=== PATIENT | male | born 1950 | race Caucasian/White ===

== ENCOUNTER 2024-03-08 06:38 | Day surgery (SDC) | payer MEDICARE, SELFPAY ==
[2024-03-08] VITALS (9 sets, daily range): BP systolic 110–124; BP diastolic 60–73; BMI 22.6
[2024-03-08] MEDS: TYLENOL 1000 MG PO (08:19)
[2024-03-08] MEDS: NORMOSOL-R 1000 IV (08:19)
--- NOTE | 2024-03-08 10:59 | W.SUR.PREOP ---
Pre-Operative Surgical Note
-
I have examined this patient prior to the performance of the scheduled procedure.
The patient's condition is unchanged from the time of the current History and
Physical and the patient is able to undergo the scheduled procedure.
--- NOTE | 2024-03-08 10:59 | W.IMMPOSTOP ---
Surgical Immed Post Op Note
-
Primary Surgeon: Marcus Tejeda MD
Assisting Surgeon: None
Instructor Adjunct Pharmacy Technician: URIEL Taylor
Pre-op Diagnosis: Reducible right inguinal hernia
Post-op Diagnosis: Same
Procedure Performed: Open right inguinal hernia repair with mesh
Anesthesia Type: General
Specimen / Cultures: Right inguinal nerve
Estimated Blood Loss: 3 cc
Complications: None
Operative Findings: Small indirect inguinal hernia. No direct component or cord lipoma noted. Floor reinforced with 5 x 7 inch Bard uncoated polypropylene standard weight mesh in a standard Dino fashion.
--- NOTE | 2024-03-08 11:02 | OR.RPT ---
Operative Report
Operative Report
Patient Name: Mayur Cardoza Jr.
: 1950
Date of Operation: 03/08/2024
Preoperative Diagnosis: Reducible Inguinal hernia, right
Postoperative Diagnosis: Same
Procedure(s):
Open right inguinal Hernia Repair with mesh
Surgeon(s):
Dr. Tejeda
Jig And Fixture Maker(s):
Peg TREVINO
Anesthesia: General
Estimated Blood Loss: 3 cc
Urine Output: None
Drains/Lines/Implants: 3 x 6 inch Bard Flat Mesh cut to size
Specimens: None
Indication for surgery: The patient has a history of groin pain and some asymmetry noted on exam and was found to have a right Inguinal Hernia. Following review of therapeutic options they has elected to undergo an open repair
Operative Findings: Small indirect inguinal hernia. No direct component or cord lipoma noted. Floor reinforced with 5 x 7 inch Bard uncoated polypropylene standard weight mesh in a standard Dino fashion.
Details of the operation:
After induction of general anesthesia, the patient was clipped, prepped and draped in the supine position. A team timeout was performed confirming administration of DVT prophylaxis, IV antibiotics and SCDs. The ASIS and pubic tubercle were marked
and an incision was chosen along the course of a skin line. The skin was anesthestized with Lidocaine. An incision was made through the skin line and dissection carried down through subcutaneous tissue and Kenyetta's fascia. The superficial
epigastric vein was identified and ligated. A Small Christopher wound retractor was used to provide exposure. The external oblique fibers were then divided in the direction of travel. The ilioinguinal nerve was identified and sacrificed as it was in
close proximity to our planned mesh placement. Dissection was carried down to the floor, which revealed the following:
At the site of the indirect (internal) ring, there was a small hernia sac was identified, reduced off the cord structures and high ligation was performed. The hernia sac was densely adherent to the vas deferens which required a lot of manipulation
to free it from the hernia sac. Except defaults
A cord lipoma was not identified
The direct space, floor of the canal revealed no weakness.
The floor of the canal was then reconstructed by placing a 6x3 in BARD flat polypropylene mesh trimmed to size and secured it in place with interrupted 0-PDS sutures medially at the pubic tubercle, inferiorly along the inguinal ligament,
laterally/superiorly in the conjoint tendon. A slit was made in the mesh just wide enough to accommodate the cord this was also reapproximated with the PDS suture. Care was taken not to injure or entrap any nerves. The external oblique fibers were
then closed using a running 2-0 Vicryl suture. Kenyetta's fascia was then closed with interrupted 3-0 Vicryl suture. The skin was closed in layers with interrupted 3-0 vicryl deep dermals followed by a running subcuticular 4-0 Monocryl followed by
dermabond. The patient returned to the Recovery Room in stable condition. Sponge and instrument counts were correct. No specimens sent to Pathology.
I was the attending physician and performed the procedure with assistance from the PA student above. I was present for all portions of the case
Marcus Tejeda MD
== END 2024-03-08 12:35 | disposition home or self-care (01) ==
LOC: SDS 06:38
PROVIDERS: ATTENDING PHYSICIAN Surgery
DX: K40.90 Unilateral inguinal hernia, without obstruction or gangrene, not specified as recurrent (principal)
CPT/HCPCS: 49505; 88305; 93005; C1781

== ENCOUNTER → 2024-05-02 09:23 | Outpatient (REF) | payer MEDICARE, SELFPAY | LOC: RAD 09:23 | PROVIDERS: ATTENDING PHYSICIAN Surgery; FAMILY PHYSICIAN Family Medicine | DX: K40.90 Unilateral inguinal hernia, without obstruction or gangrene, not specified as recurrent (principal); G89.18 Other acute postprocedural pain | CPT/HCPCS: 72193; Q9967 ==

== ENCOUNTER → 2024-08-04 10:05 | Outpatient (REF) | payer MEDICARE, SELFPAY | LOC: WDC 10:05 | PROVIDERS: ATTENDING PHYSICIAN Family Medicine | DX: N62 Hypertrophy of breast (principal); N63.41 Unspecified lump in right breast, subareolar; N64.4 Mastodynia | CPT/HCPCS: 76642; 77062; 77066 ==

== ENCOUNTER → 2024-09-27 07:10 | Outpatient (REF) | payer MEDICARE, SELFPAY | LOC: RAD 07:10 | PROVIDERS: ATTENDING PHYSICIAN Internal Medicine Cardiovascular Disease; FAMILY PHYSICIAN Family Medicine | DX: I73.9 Peripheral vascular disease, unspecified (principal) | CPT/HCPCS: 93922; 93925 ==

== ENCOUNTER → 2025-05-17 12:39 | Outpatient (REF) | payer MEDICARE, SELFPAY | LOC: RAD 12:39 | PROVIDERS: ATTENDING PHYSICIAN Surgery Vascular Surgery; FAMILY PHYSICIAN Family Medicine | DX: I73.9 Peripheral vascular disease, unspecified (principal) | CPT/HCPCS: 93922; 93925 ==

== ENCOUNTER 2025-06-16 06:01 | Day surgery (SDC) | payer MEDICARE, SELFPAY ==
[2025-06-16 10:20] VITALS: BMI 21.2
[2025-06-16 10:25] VITALS: BP 151/78
[2025-06-16 10:42] VITALS: BMI 21.2
[2025-06-16 12:05] VITALS: BP 120/76
[2025-06-16 12:15] VITALS: BP 128/75
[2025-06-16 12:30] VITALS: BP 127/78
[2025-06-16 12:45] VITALS: BP 131/80
== END 2025-06-16 13:05 | disposition home or self-care (01) ==
LOC: SDS 06:01
PROVIDERS: ATTENDING PHYSICIAN Internal Medicine Gastroenterology
DX: D12.0 Benign neoplasm of cecum (principal); D12.3 Benign neoplasm of transverse colon; K63.89 Other specified diseases of intestine; D50.9 Iron deficiency anemia, unspecified
CPT/HCPCS: 45380; 88305; 88313; 88342

== ENCOUNTER → 2025-10-19 11:43 | Outpatient (REF) | payer MEDICARE, SELFPAY | LOC: RAD 11:43 | PROVIDERS: ATTENDING PHYSICIAN Specialist; FAMILY PHYSICIAN Family Medicine | DX: N39.0 Urinary tract infection, site not specified (principal); N20.1 Calculus of ureter | CPT/HCPCS: 74018 ==